=== PATIENT | female | born 1940 | race Caucasian/White ===

== ENCOUNTER → 2017-11-18 | Outpatient (CLI) | payer MEDICARE ==
[~2017-11-18] MED LIST: AMLO-99 PO; BENA20TA8 PO; ESTR0.5T16 PO; FLU150 FT; MECL-81 PO; SIMV10TA98 PO
--- NOTE | 2017-11-19 09:01 | RADIOLOGY IMAGING REPORT ---
FACILITY: [facility] - [place] PATIENT NAME: MJ HOLBROOK : [id number] MR: [id number] V: [id number] EXAM DATE: [id number] ORDERING PHYSICIAN: DALIA PEREZ TECHNOLOGIST: Tiffany Sharif PROCEDURE:BILATERAL DIGITAL SCREENING MAMMOGRAM WITH CAD ASSISTED INTERPRETATION & 3D TOMOSYNTHESIS COMPARISON:Prior mammogram 11/07/15, 10/19/14, 11/25/12. INDICATIONS:screening FINDINGS: Moderately heterogeneous fibroglandular tissue is seen throughout the breasts. The parenchymal pattern has remained stable allowing for difference in mammographic technique & patient positioning. There is no evidence of malignant appearing mass, malignant appearing calcifications or other secondary sign of malignancy in either breast. DIAGNOSTIC CATEGORY 1--NEGATIVE. RECOMMENDATIONS: ROUTINE MAMMOGRAM AND CLINICAL EVALUATION. IMPRESSION: BIRADS 1: Negative. No significant abnormality is seen. Dictated by: Maame Noguera M.D. on 11/18/2017 at 17:55 Transcribed by: JOSE on 11/19/2017 at 8:47 Approved by: Maame Noguera M.D. on 11/19/2017 at 8:58 [facility]
== END ==
LOC: MAMO 02:23
PROVIDERS: ATTEND Family Medicine
DX: Z12.31 Encounter for screening mammogram for malignant neoplasm of breast (principal)
CPT/HCPCS: 77063; 77067

== ENCOUNTER 2018-03-27 01:19 | Day surgery (SDC) | payer MEDICARE ==
[~2018-03-27] VITALS: Ht 170.2 cm; Wt 60.8 kg
[~2018-03-27 01:19] MED LIST changes: +AMLO-113 PO; -AMLO-99 PO; +BENA20TA64 PO; -BENA20TA8 PO
[2018-03-27] MEDS ORDERED: NORMOSOL R SOLN(*) 1000 ML BAG 1,000 ML IV PRN (09:40)
[2018-03-27] MEDS ORDERED: LIDOCAINE/SOD BICARB 8.4% SYR ID ONE (09:40)
[2018-03-27 10:32] VITALS: BP 143/72
[2018-03-27] MEDS ORDERED: LIDOCAINE MPF 1% 5 ML VIAL ONE (10:39)
[2018-03-27] MEDS ORDERED: PROPOFOL EMUL(*) 10MG/ML 20 ML 40 ML ONE (10:39)
[2018-03-27 11:43] VITALS: BP 98/58
[2018-03-27 12:00] VITALS: BP 125/72
[2018-03-27 12:15] VITALS: BP 133/75
== END 2018-03-27 12:40 | disposition home or self-care (01) ==
LOC: OR 01:19
PROVIDERS: ATTEND Family Medicine
DX: Z12.11 Encounter for screening for malignant neoplasm of colon (principal); I10 Essential (primary) hypertension; E78.5 Hyperlipidemia, unspecified; G82.20 Paraplegia, unspecified; Z88.2 Allergy status to sulfonamides; Z88.8 Allergy status to other drugs, medicaments and biological substances
CPT/HCPCS: 00811; 45380; 88305; J2001; J2704